=== PATIENT | male | born 1955 | race Caucasian/White ===

== ENCOUNTER → 2017-08-03 | Outpatient (CLI) | payer OTHER ==
[~2017-08-03] MED LIST: CRS10 PO; SYNUNK; [UNRECOGNIZED DRUG - OTHER] PO
[2017-08-03 12:36] LABS: BASO % 0.8 %; BASO ABS # 0.04 K/uL (0-0.2); EOS % 3.4 %; EOS ABS # 0.17 K/uL (0-0.5); HEMATOCRIT 42.5 % (42-52); HEMOGLOBIN 14.8 g/dL (14.0-18.0); IG# 0.01 K/uL (0.00-0.02); LYMPH % 27.9 %; LYMPH ABS # 1.39 K/uL (1.2-3.4); MEAN CELL VOLUME 86.4 fL (80-100); MEAN CORPUSCULAR HEMOGLOBIN 30.1 pg (25-34); MEAN CORPUSCULAR HGB CONC 34.8 g/dl (32-36); MEAN PLATELET VOLUME 8.9 fL (7.4-10.4); MONO ABS # 0.25 K/uL (0.11-0.59); NEUT % 62.7 %; NEUT ABS # 3.13 K/uL (1.4-6.5); PLATELET COUNT 239 K/uL (130-400); RED CELL DISTRIBUTION WIDTH CV 13.5 % (11.5-14.5); RED CELL DISTRIBUTION WIDTH SD 42.7 fL (36.4-46.3); WHITE BLOOD COUNT 4.99 K/uL (4.8-10.8)
[2017-08-03 13:16] LABS: ALBUMIN 4.3 gm/dl (3.4-5.0); ALT/SGPT 36 U/L (12-78); AST/SGOT 27 U/L (15-37); BLOOD UREA NITROGEN 14 mg/dl (7-18); CALCIUM 9.1 mg/dl (8.5-10.1); CARBON DIOXIDE 29 mmol/L (21-32); CHOLESTEROL 141 mg/dl (0-200); CREATININE 0.98 mg/dl (0.60-1.40); GLUCOSE 89 mg/dl (70-99); POTASSIUM 4.3 mmol/L (3.5-5.1); SODIUM 137 mmol/L (136-145); TESTOSTERONE,TOTAL 382.3 ng/dl
[2017-08-03 13:26] LABS: ALKALINE PHOSPHATASE 79 U/L (45-117); LDL CHOLESTEROL CALCULATED 31 mg/dl; TOTAL PROTEIN 7.7 gm/dl (6.4-8.2)
== END | disposition home or self-care (01) ==
LOC: C.LAB1850 11:18
PROVIDERS: ATTEND Internal Medicine Pulmonary Disease
DX: D35.2 Benign neoplasm of pituitary gland (principal); E03.9 Hypothyroidism, unspecified; E29.1 Testicular hypofunction; E78.5 Hyperlipidemia, unspecified; N52.9 Male erectile dysfunction, unspecified

== ENCOUNTER 2023-05-07 07:17 | Observation (INO) ==
--- NOTE | 2023-03-27 11:20 | PAT Medication Instructions ---
Medication Instructions Date of Service March 27, 2023 Home Medications Medication Instructions Recorded atorvastatin 20 mg tablet 20 mg PO QAM #90 tabs 08/14/22 levothyroxine 100 mcg tablet 100 mcg PO QAM #90 tabs 08/14/22 testosterone 2 pump topical DAILY #225 grams 08/14/22 sildenafil 100 mg tablet 100 mg PO DAILY PRN aspirin 81 mg tablet,delayed release 81 mg PO QAM atorvastatin 20 mg tablet 20 mg PO QAM levothyroxine 100 mcg tablet 100 mcg PO QAM testosterone 2 pump topical DAILY ASK your prescriber and surgeon aspirin 81 mg tablet,delayed release 81 mg PO QAM testosterone 2 pump topical DAILY DO NOT take the morning of surgery sildenafil 100 mg tablet 100 mg PO DAILY PRN Take morning of surgery With a small sip of water, OTHERWISE NOTHING TO EAT OR DRINK AFTER MIDNIGHT: atorvastatin 20 mg tablet 20 mg PO QAM levothyroxine 100 mcg tablet 100 mcg PO QAM Other Notes If you have any questions please call us at [phone] or [phone] or [phone] or [phone]
--- NOTE | 2023-04-05 10:17 | Anesthesiology Consultation ---
Date of Service April 05, 2023 Assessment & Plan (1) Encounter for pre-operative examination: Chart Review Chart Review: Acceptable Risk for Surgery and Patient seen in Pre Admission Testing Pt currently scheduled as 23 hours observation. If surgeon decides to change patient to Same Day Joint, patient would be acceptable risk for TKA, pending patient is motivated, has good support and surgeon's office completes [facility] preop requirements. Per PAT appt on 04/05/23, no recent illness/disease exposures, illness related symptoms, or recent illness/disease positive tests. Will leave to surgeon's discretion if preop Covid testing needed History Surgery Operation Date: 05/07/23 10:25 Proposed Procedures p Right Total Knee Arthroplasty(Right) - Marco Silveira, Height/Weight Height: 5 ft 10 in Weight: 118.4 kg Allergies Allergy/AdvReac Type Severity Reaction Status Date / Time No Known Drug Allergies Allergy Unknown Verified 03/27/23 10:32 Medications Home Medications Medication Instructions Recorded Confirmed Last Taken sildenafil 100 mg tablet 100 mg PO DAILY PRN sexual 11/18/18 03/27/23 12/25/20 activity #30 tabs aspirin 81 mg tablet,delayed 81 mg PO QAM 12/23/20 03/27/23 12/27/20 release atorvastatin 20 mg tablet 20 mg PO QAM #90 tabs 08/14/22 03/27/23 Unknown levothyroxine 100 mcg tablet 100 mcg PO QAM #90 tabs 08/14/22 03/27/23 Unknown testosterone 2 pump topical DAILY #225 grams 08/14/22 03/27/23 Unknown Past Medical History Medical History Right upper extremity numbness EMG scheduled 05/02/23 History of gout No recent issues Osteoarthritis Snoring No witnessed apnea- hx of sleep study- no HAYLEY Hyperlipidemia Hypothyroidism 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21 - on thyroid medication and testosterone- no known adrenal insufficiency per patient Exercise / Class Metabolic Activity II 4-5 Yardwork/Stairs/Walk up hill (one flight of stairs - no chest pain or SOB ) Past Family History Family History Mother Stroke Other Essential hypertension Stroke syndrome Thyroid disorder Past Surgical History Surgical History History of arthroscopy right knee History of tooth extraction History of appendectomy History of colonoscopy (~12/2020) Social History Smoking Status: Never smoker Do You Dip or Chew Tobacco: Yes (1-1.5 can/week- advised NPO after midnight) Hx Alcohol Use: Yes Alcohol type: beer alcohol intake frequency: a few times a month Hx Substance Use: No substance use type: does not use Review of Systems Patient denies chest pain, shortness of breath, dyspnea on exertion, reflux, cough, wheezing, palpitations. No hx of seizures, stroke, LA. No hx of blood clots or blood transfusions Physical Exam Vital Signs VITALS BP 118/77 P 66 TEMP 97.8 SP02 96% RESP 16 Constitutional no acute distress ENMT Mouth: no TMJ clicking Thyromental Distance: > or= 3.5 Finger Breadths (4.0) Mallampati Class: I Full dentures on top and bottom Neck neck extension not limited Respiratory normal respiratory effort; no respiratory distress Auscultation: lungs clear to auscultation bilaterally; no wheezes Cardiovascular Rate/Rhythm: regular rate and regular rhythm Heart Sounds: no murmur Vessels: no carotid bruit Musculoskeletal Spine: no pain with cervical ROM Extremities: extremities normal to inspection Psychiatric Orientation: alert Lab Results Anesthesia Preop Results Results Anesthesia Widget: WBC 5.65 K/ul (4.8-10.8) 04/05/23 Hgb 14.0 g/dl (14.0-18.0) 04/05/23 Hct 40.5 % (42.0-52.0) L 04/05/23 Plt 234 K/uL (130-400) 04/05/23 Na 138 mmol/L (136-145) 04/05/23 K 4.5 mmol/L (3.5-5.1) 04/05/23 Cl 106 mmol/L (98-107) 04/05/23 CO2 29 mmol/L (21-32) 04/05/23 BUN 11 mg/dl (6-23) 04/05/23 Creat 1.07 mg/dl (0.6-1.4) 04/05/23 Glucose Level 92 mg/dl (70-99(Fasting)) 04/05/23 PT 11.1 Seconds (9.0-12.0) 04/05/23 PTT 30 Seconds (21-31) 04/05/23 INR 1.0 (0.9-1.1) 04/05/23 Blood Type O Positive 04/05/23 Antibody Screen NEGATIVE 04/05/23 Testing Electrocardiogram Date: 04/05/23 Findings: + SB @ (55bpm) Otherwise normal EKG per cardio Chest X-Ray Date: 04/05/23 Findings: + NAD Other Testing Brain MRI 06/10/19= Limited white matter changes either age-related change or mild chronic small vessel ischemic change. No acute intracranial abnormality. Postsurgical changes of the sella and sphenoid sinuses as on prior exam.
--- NOTE | 2023-05-03 12:41 | History & Physical Report ---
Date of Service May 03, 2023 Assessment & Plan (1) Osteoarthritis of right knee: We will proceed with a right total knee arthroplasty. Postoperatively he will be started on aspirin for DVT prophylaxis and kept overnight in the hospital for postop medical management. He plans to go to [facility] physical therapy before discharge. History of Present Illness Chief Complaint: Osteoarthritis of the right knee. Primary Care Provider: Jarvis Klein MD Stuart is a pleasant 67-year-old male who has been dealing with chronic increasing right knee pain. It has been going on for years. It has waxed and waned over the years. There are times where he has to stop what he is doing to put ice on his knee because it is very painful. All of his pain is located laterally. X-rays and clinical examination been diagnostic for advanced osteoarthritis of the right knee. After failing conservative treatment, he has elected proceed with a right total knee arthroplasty. . Allergies Allergy/AdvReac Type Severity Reaction Status Date / Time No Known Drug Allergies Allergy Unknown Verified 03/27/23 10:32 Home Medications Medication Instructions Recorded Confirmed Type sildenafil 100 mg tablet 100 mg PO DAILY PRN sexual 11/18/18 03/27/23 History activity #30 tabs aspirin 81 mg tablet,delayed 81 mg PO QAM 12/23/20 03/27/23 History release atorvastatin 20 mg tablet 20 mg PO QAM #90 tabs 08/14/22 03/27/23 Rx levothyroxine 100 mcg tablet 100 mcg PO QAM #90 tabs 08/14/22 03/27/23 Rx testosterone 2 pump topical DAILY #225 grams 08/14/22 03/27/23 Rx Past Med/Surg History Medical History Right upper extremity numbness EMG scheduled 05/02/23 History of gout No recent issues Osteoarthritis Snoring No witnessed apnea- hx of sleep study- no HAYLEY Hyperlipidemia Hypothyroidism 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21 - on thyroid medication and testosterone- no known adrenal insufficiency per patient Surgical History History of arthroscopy right knee History of tooth extraction History of appendectomy History of colonoscopy (~12/2020) Family History Mother Stroke Other Essential hypertension Stroke syndrome Thyroid disorder Social History Smoking Status: Never smoker Tobacco Type: Smokeless Tobacco (Dip or Chew) Second Hand Exposure: No; Do You Dip or Chew Tobacco: Yes (1-1.5 can/week- advised NPO after midnight); Tobacco Cessation Education Requested by Patient: No Hx Alcohol Use: Yes Alcohol type: beer Hx Substance Use: No Preferred Language: Belarusian Communication Ability: Effective Furniture Finisher Required: No Beliefs That Will Affect Care: None marital status: Current Living Situation: Spouse current occupational status: employed Feels Safe at Home: Yes Safety Concerns: Feels Safe At This Time Assistive Devices: Denture - Upper and Denture - Lower Review of Systems All systems reviewed & are unremarkable except as noted in HPI & below. Physical Exam On physical examination the right knee, he has decreased range of motion. He has pain over the distal medial and lateral femoral condyles.. Constitutional WD/WN, vitals as above Eyes PERRL, conjunctivae normal, anicteric sclerae ENMT external ear and nose normal, oropharynx normal Neck trachea midline, no thyromegaly Respiratory normal respiratory effort Cardiovascular RRR, no murmur, no edema Gastrointestinal (Abdomen) normal bowel sounds, soft, nontender, no hepatosplenomegaly Psychiatric A+Ox3, euthymic affect Results & Data Results & Data Laboratory Results . Diagnostic Findings X-rays of the right knee show advanced osteoarthritis with joint space narrowing, osteophyte formation, and [id number] articulation. PG Care Time/CCT Total # of Minutes Spent Total Time Spent with Patient: Total time spent is greater than 50% in coordination of care (as documented) at patient's floor/unit and/or counseling patient: Coding Level of Care Code None Diagnoses Osteoarthritis of right knee M17.11
[~2023-05-07 07:17] MED LIST changes: +ACETAMINOPHEN 500 MG TAB PO SCH; +BUPIVACAINE 0.5 % 5 MG/1 ML PF 10ML VIAL ONE; -CRS10 PO; +FAMOTIDINE 20 MG TAB PO SCH; +GABAPENTIN 300 MG CAP PO SCH; +LR 500ML BOLUS, THEN 15ML/HR IV SCH; +LR 60ML/HR IV SCH; +ROPIV 0.5% 246mg, Ketorolac 30mg, EPINEPHrine 0.5mg in NSS INFIL SCH; +ROPIVACAINE 0.5% 5 MG/ML 30 ML VIAL ONE; -SYNUNK; +TRANEXAMIC ACID 1,000 MG **IV Intra-op IV SCH; +TRANEXAMIC ACID 1,000 MG **IV Pre-op IV SCH; -[UNRECOGNIZED DRUG - OTHER] PO; +ceFAZolin 2000MG 2,000 MG/15 ML SYR IV SCH; +dexAMETHasone**PF** 10 MG/ML VIAL IV SCH
[2023-05-07] MEDS ORDERED: MIDAZOLAM HCL 1 MG/ML 2ML VIAL ONE (08:41)
[2023-05-07] MEDS ORDERED: fentaNYL citrate PF 100 MCG/2 ML VIAL ONE (08:41)
[2023-05-07] MEDS ORDERED: ORTHO JOINT ANESTHETIC ONE (08:56)
[2023-05-07] MEDS ORDERED: ATROPINE SULFATE 0.1 MG/ML 10ML SYR IV PRN (09:00)
[2023-05-07] MEDS ORDERED: ePHEDrine sulfate 50 MG/ML AMP IV PRN (09:00)
[2023-05-07] MEDS ORDERED: ONDANSETRON INJ 2 MG/ML 2 ML VIAL IV PRN ×2 (09:00→13:20)
[2023-05-07] MEDS ORDERED: fentaNYL citrate PF 100 MCG/2 ML VIAL IV PRN (09:00)
--- NOTE | 2023-05-07 09:26 | History & Physical Bridge Note ---
Date of Service May 07, 2023 History & Physical Bridge Note I have examined the patient, reviewed the History & Physical and in the interval since the performance of the History & Physical I have noted the following changes of clinical significance: no changes noted
[2023-05-07] MEDS ORDERED: DexMEDEtomidine HCL IV 100 MCG/ML VIAL IV ONE (09:27)
[2023-05-07] MEDS ORDERED: ePHEDrine sulfate 50 MG/5 ML SYR ONE (09:46)
[2023-05-07] MEDS ORDERED: ONDANSETRON INJ 2 MG/ML 2 ML VIAL ONE (09:54)
[2023-05-07] MEDS ORDERED: PROPOFOL IV EMULSION 10 MG/ML 20 ML VIAL IV ONE (09:54)
[2023-05-07] MEDS ORDERED: ARISTA ABSORBABLE HEMOSTAT 3GM TOP ONE (10:04)
--- NOTE | 2023-05-07 10:36 | Operative Report ---
PG Post Operative Report Pre & Post Diagnosis Operation Date: 05/07/23 09:15 Pre-Op Diagnosis: Degenerative Joint Disease Right Knee Post-Op Diagnosis: Degenerative Joint Disease Right Knee I identified the patient and participated in the time-out.: Yes Procedure Operation Date: 05/07/23 09:15 Actual Procedures p Right Total Knee Arthroplasty, Cemented(Right) - Marco Silveira DO Surgeon Marco Silveira DO [employer] Marco Purcell PA-C Estimated Blood Loss 30 Findings Consistent with Post-Op Diagnosis Specimens Right femoral tibial bone Description of Procedure Implants used: I used a Hortencia Persona total knee arthroplasty system with a size 11 PS femur, F tibia, 34 oval patella, and a size 10 CPS polyethylene bearing. All components were cemented in place with Biomet cement. Stuart arrived [facility] for the above procedure. He was seen in the preoperative holding area and the operative extremity was identified and signed. He was given a preoperative antibiotic, TXA, a spinal anesthetic and an adductor nerve block. He was taken back to the operating room and laid on the table in supine position. He was given basic sedation. The operative knee was then prepped and draped in sterile fashion. A timeout was done, and the patient and the operative extremity was properly identified. A midline incision was made directly over the patella. Dissection was taken down to the extensor mechanism. A medial parapatellar arthrotomy was used. The medial retinaculum was released and the fat pad was mostly excised. The knee was flexed and the ACL, PCL, and meniscus were removed. A drill was sent down the center of the femoral canal followed by an intramedullary cathryn. Off that cathryn a distal femoral cutting block was placed. 9 mm was resected off the distal femur at 5 of valgus. A posterior referencing AP sizing guide was then placed on the distal femur. The femur measured to be a size 11. 2 drill holes were placed in 3 of external rotation. A 4-in-1 cutting block was then impacted into place. Anterior, posterior, and chamfer cuts were then made. The proximal tibia was then exposed. An external tibial alignment guide was placed. A tibial cut guide was then anchored in place and the proximal tibia was then resected. The posterior aspect of the knee was then opened up and any additional meniscus fragments and osteophytes were removed. The tibia measured to be a size F. The tibial plate was then placed in the appropriate rotation and the tibia was drilled and punched. Trial components were then placed. I used a size 10 CPS polyethylene insert. The knee was brought through a full range of motion and felt to be stable. The peg holes for the femoral component were then drilled. The patella was then everted and 9 mm was resected off the posterior aspect of the patella. The patella measured to be a size 34 oval. 3 peg holes were then drilled. A trial patella was placed. The knee was once again brought through a full range of motion and felt to be stable. Trial components were then removed. The surrounding soft tissues were injected with 100 cc of an orthopedic pain control cocktail. All components were then cemented into place with Biomet cement. The final polyethylene insert was then snapped into place. Once cement was dry the tourniquet was deflated. Hemostasis was obtained. A dilute betadyne lavage was then done for 3 minutes. The joint was then irrigated with normal saline solution. The medial parapatellar arthrotomy was then closed with #1 Vicryl suture. The skin was closed with 2-0 Vicryl, 3-0V lock suture, and tarah. A soft compressive dressing was placed. He was then transferred to a hospital bed and taken to the postanesthesia care unit in stable condition. He tolerated the procedure well. Marco Purcell PA-C, was present for the entire procedure. He was critical for patient positioning, prepping, draping, retraction exposure, wound closure and application of sterile dressing. I attest to the content of the Intraoperative Record and any orders documented therein. Any exceptions are noted below.
--- NOTE | 2023-05-07 11:50 | XRay Report ---
TWO VIEWS RIGHT KNEE CLINICAL HISTORY: Postoperative examination. FINDINGS: AP and crosstable lateral portable views of the right knee are obtained. A right knee arthr oplasty is in near anatomic alignment. There has been undersurface remodeling of the patella. No acut e fracture is seen. There are expected postoperative changes around the knee including skin clips, so ft tissue edema, and subcutaneous gas. IMPRESSION: Expected postoperative changes status post right knee arthroplasty. No acute fracture is seen. ACT 112: Negative or not required by law. Electronically signed by: Priyank Poe M.D. 05/07/2023 11:49 AM
--- NOTE | 2023-05-07 11:56 | Anesthesiology Progress Note ---
Date of Service May 07, 2023 Anesthesia Post Procedure Vital Signs Vital Signs: Temp Pulse Pulse Resp BP Pulse Ox O2 Del Method 05/07/23 11:45 56 L 14 105/60 92 Room Air 05/07/23 11:35 52 L 17 106/58 L 92 Room Air 05/07/23 11:25 97.5 F L 59 L 22 101/59 L 92 Room Air 05/07/23 11:15 52 L 14 106/56 L 94 Oxymask 05/07/23 11:05 59 L 13 106/59 L 95 Oxymask 05/07/23 10:57 97.2 F L 61 14 90/40 L 92 Oxymask 05/07/23 07:47 98.2 F 56 L 16 140/80 97 Room Air O2 Flow Rate 05/07/23 11:45 05/07/23 11:35 05/07/23 11:25 05/07/23 11:15 2 05/07/23 11:05 7 05/07/23 10:57 7 05/07/23 07:47 Pain Intensity Right Knee: Pain Intensity: 3 Transfer of Care Handoff Completed per policy Notes Mental Status: alert / awake / arousable and participated in evaluation Patient Amnestic to Procedure: Yes Nausea / Vomiting: adequately controlled Pain: adequately controlled Airway Patency, RR, SpO2: stable & adequate BP & HR: stable & adequate Hydration State: stable & adequate Neuraxial Anesthesia: was administered and sensory block is resolving Anesthetic Complications: no major complications apparent and Pt Satisfied with anesthetic care
[2023-05-07] MEDS ORDERED: NALOXONE HCL 0.4 MG/1 ML VIAL/CARP IV PRN (13:20)
[2023-05-07] MEDS ORDERED: NON-FORMULARY MEDICATION (Sildenafil 100 mg tablet) PO PRN (13:20)
[2023-05-07] MEDS ORDERED: oxyCODONE HCL IR 5 MG TAB (IMMEDIATE RELEASE) PO PRN (13:20)
[2023-05-07] MEDS ORDERED: MAGNESIUM HYDROXIDE SUSP 30 ML UDC PO PRN (13:20)
[2023-05-07] MEDS ORDERED: METOCLOPRAMIDE HCL INJ 5 MG/ML 2 ML VIAL IV PRN (13:20)
[2023-05-07] MEDS ORDERED: HYDROmorphone INJ 0.5 MG/0.5 ML SYR IV PRN (13:20)
[2023-05-07] MEDS ORDERED: bisacodyL 10 MG SUPP PR PRN (13:20)
[2023-05-07] MEDS: ACETAMINOPHEN 500 MG TAB PO SCH ×2 (13:51→21:22)
[2023-05-07] MEDS: KETOROLAC TROMETHAMINE 15 MG/ML VIAL IV SCH ×2 (13:51→19:58)
[2023-05-07] MEDS ORDERED: SODIUM CHLORIDE 0.9% 1,000 ML IV SCH (14:00)
[2023-05-07] MEDS: ceFAZolin 2000MG 2,000 MG/15 ML SYR IV SCH (16:33)
[2023-05-07] MEDS: DOCUSATE SODIUM 100 MG CAP PO SCH (19:59)
[2023-05-07] MEDS: ASPIRIN 81 MG ECTAB PO SCH (19:59)
[2023-05-07] MEDS ORDERED: SENNA 8.6 MG TAB PO SCH (21:00)
[2023-05-08] MEDS: ceFAZolin 2000MG 2,000 MG/15 ML SYR IV SCH (00:20)
[2023-05-08] MEDS: KETOROLAC TROMETHAMINE 15 MG/ML VIAL IV SCH ×2 (00:20→07:26)
[2023-05-08] MEDS: ACETAMINOPHEN 500 MG TAB PO SCH (04:49)
[2023-05-08] MEDS ORDERED: LEVOTHYROXINE SODIUM 100 MCG TABLET PO SCH (06:30)
[2023-05-08] MEDS: ASPIRIN 81 MG ECTAB PO SCH (07:26)
[2023-05-08] MEDS: DOCUSATE SODIUM 100 MG CAP PO SCH (07:27)
[2023-05-08] MEDS ORDERED: dexAMETHasone 4 MG TAB PO SCH (08:00)
[2023-05-08] MEDS ORDERED: MULTIVITAMIN TAB PO SCH (09:00)
[2023-05-08] MEDS ORDERED: ATORVASTATIN 20 MG TAB PO SCH (09:00)
--- NOTE | 2023-05-08 11:57 | Orthopedic Progress Note ---
Date of Service May 08, 2023 Assessment & Plan (1) Status post right knee replacement: Overall he is doing quite well today with good pain control to the right knee. He will work with physical therapy later this morning to work on ambulation and range of motion exercises. He is on aspirin for DVT prophylaxis. He can be discharged home later this morning pending physical therapy evaluation. He will follow-up with orthopedics in 2 weeks for postoperative care. Subjective . Stuart was seen and evaluated this morning resting comfortably in no apparent distress. He notes that his pain to the right knee is well-controlled. He has been up and ambulating with no significant issues. He has yet to be seen by physical therapy. He denies any other concerns today. Review of Systems All systems reviewed & are unremarkable except as noted in HPI & below. Physical Exam . On physical examination of the right knee, dressings are clean, dry, intact. His right leg is out in full extension. He has active plantarflexion dorsiflexion to the right ankle. +2 DP and PT pulses. Less than 2-second capillary refill. Normal sensation. Neurovascular intact. Results & Data Results & Data Laboratory Results . Diagnostic Findings . Postoperative x-rays of the right knee show prosthesis to be in anatomical alignment with no signs of fracture complication or loosening. PG Care Time/CCT Total # of Minutes Spent Total Time Spent with Patient: Total time spent is greater than 50% in coordination of care (as documented) at patient's floor/unit and/or counseling patient: Coding Level of Care Code 88620 Post Operative Follow-Up Diagnoses Status post right knee replacement Z96.651
--- NOTE | 2023-05-08 11:59 | Discharge Summary ---
Date of Service May 08, 2023 Admission HPI (Per Admitting) Stuart is a pleasant 67-year-old male who has been dealing with chronic increasing right knee pain. It has been going on for years. It has waxed and waned over the years. There are times where he has to stop what he is doing to put ice on his knee because it is very painful. All of his pain is located laterally. X-rays and clinical examination been diagnostic for advanced osteoarthritis of the right knee. After failing conservative treatment, he has elected proceed with a right total knee arthroplasty. . Admission Exam (Per Admitting) On physical examination the right knee, he has decreased range of motion. He has pain over the distal medial and lateral femoral condyles.. Principal Diagnosis Same as "Discharge Diagnosis" noted below under Discharge Instructions. Discharge Exam . On physical examination of the right knee, dressings are clean, dry, intact. His right leg is out in full extension. He has active plantarflexion dorsiflexion to the right ankle. +2 DP and PT pulses. Less than 2-second capillary refill. Normal sensation. Neurovascular intact. Discharge Data Procedures Performed Operation Date: 05/07/23 09:15 Actual Procedures p Right Total Knee Arthroplasty, Cemented(Right) - Marco Silveira DO Ordered Studies 05/07/23 05:00 US - OR guided needle placemen Routine Hospital Course (1) Status post right knee replacement: On May 07, 2023. Arrived at [facility] and underwent a right total knee arthroplasty performed by Dr. Silveira with no complications. He had a spinal anesthetic. Postoperatively, he was started on aspirin for DVT prophylaxis and transferred to the general orthopedic floor in stable condition. His hospital course was uneventful. On postoperative day #1, his vital signs were stable and his pain was well-controlled. He participated well with physical therapy working on ambulation and range of motion exercises. He was then discharged home in stable condition. He will follow-up with orthopedics in 2 weeks for postoperative care. PG Care Time/CCT Total # of Minutes Spent Total Time Spent with Patient: Total time spent is greater than 50% in coordination of care (as documented) at patient's floor/unit and/or counseling patient: Discharge Plan Discharge Items Patient Disposition: Home - Home Health Services Reason For Visit: Degenerative Joint Disease Right Knee Discharge Diagnosis: Same Activity: Per Instructions section Non-emergency contact: Surgeon Call non-emergency contact if: your temperature is above 101.5, your wound has increased redness and your wound has increased drainage Follow-up/Referrals: Jarvis Klein MD [Primary Care Provider] - Diet: Regular Addtl Attending Provider Instructions: Activity and Therapy Recommendations: * If you are using [facility] then therapy will be provided at your home until they feel you have accomplished all of your goals. * If you are using [facility] then Physical Therapy will be provided until they feel you are ready to start Outpatient Physical Therapy. * If you are not using home therapy then Outpatient Physical Therapy should start about 3-5 days from your day of surgery. Therapy will last about 6-10 weeks * It is important not to put a pillow under your knee when you are relaxing or sleeping. It is just as important to make sure you are getting your knee perfectly straight as it is to regain your knee bend. * You were shown a series of exercises in the hospital. Do these exercises three times each day including the exercises you were shown in physical therapy. * Get up and walk several times each day. For the first four weeks, try not to stand or walk for more than one hour at a time. If you do stand or walk for more than one hour, you will not hurt anything, but your leg will likely swell. * As you feel comfortable, you may change from the walker or crutches to a cane and then to independent walking. Medications: * Narcotic You will likely be sent home from the hospital with a prescription for the narcotic pain medication that worked best throughout your stay. * Cefadroxil -take the antibiotic twice a day for 10 days to help prevent infection. * Aspirin Most patients will be required to take Aspirin 81mg twice a day for 6 weeks after surgery. This is obtained [id number] and a prescription is not necessary. * Other medications may be prescribed for specific circumstances. If you have any questions, please call the office at . * Resume previous home medications unless otherwise instructed TEDs/Elastic Stockings: The white elastic stockings help limit swelling and prevent blood clots from forming in your legs.~ The more you wear them, the more they work. Wear them for six weeks. Dressing Care: The dressing can be changed after physical therapy on postop day #1. Daily dry dressing changes for a few days, especially if the incision is still draining some. If the incision is not draining then you may leave the tarah open to air. If there is a little bit of drainage or if the tarah are getting stuck on your clothing then cover the incision with a dry dressing. The tarah will be removed at your 2 week follow-up appointment. Showering: You may shower 5 days from the day of surgery as long as the incision is no longer draining. You may shower with the tarah exposed. Let soapy water run over the tarah and pat them dry. Do not scrub or soak the incision. Things To Watch For: * Drainage from the incision site that occurs more than one week after your surgery. * Increased redness at the incision site. * Fever above 102 degrees Fahrenheit. * Unusual chest pain or shortness of breath. * Call [facility] at with any of the above problems Follow-Up Visit: Follow-up with Dr. Silveira's PA (Mraco Purcell) 2-3 weeks after your day of surgery. He will remove your tarah and answer any questions. If you have any additional questions or concerns, Dr Silveira is usually in the office at the same time and will be available An appointment was probably scheduled when you signed-up for surgery in the office. If you have any questions call Office Instructions: More detailed instructions as well as Frequently Asked Questions were provided in a folder by our office when you signed-up for surgery. Please review these instructions when you get home. If you have any further questions or concerns, please feel free to call the office at [phone] Pending Studies at Discharge: No Stand-Alone Forms: [facility], Smoking Cessation Medications and DC Order Prescriptions: New aspirin 81 mg Tablet,Delayed Release (Dr/Ec) 81 mg PO BID 42 Days Qty: 0 0RF oxycodone 5 mg Tablet 5 mg PO Q6 PRN (Reason: pain) Qty: 30 0RF cefadroxil 500 mg capsule 500 mg PO BID 10 Days Qty: 20 0RF Continued sildenafil 100 mg tablet 100 mg PO DAILY PRN (Reason: sexual activity) Qty: 30 atorvastatin 20 mg tablet 20 mg PO QAM Qty: 90 3RF Rx Instructions: TAKE 1 TABLET BY MOUTH ONCE DAILY levothyroxine 100 mcg tablet 100 mcg PO QAM Qty: 90 3RF Rx Instructions: TAKE 1 TABLET BY MOUTH ONCE DAILY testosterone 20.25 mg/1.25 gram (1.62 %) gel in metered-dose pump 2 pump topical DAILY Qty: 225 3RF Rx Instructions: Apply 40.5mg/2 PUMPS to front and inner area of EACH thigh; avoid water for >=2 hrs Discontinued aspirin 81 mg Tablet,Delayed Release (Dr/Ec) 81 mg PO QAM Krames/Other Patient Handouts: Understanding Knee Replacement, Knee Replace 1st Month, Knee Replace Control Swelling Admission Data Admit Date/Time: 05/07/23 10:58 Attending Provider: Marco Silveira Admit Provider: Marco Silveira Primary Care Provider: Jarvis Klein Other Interventions: Discharge Summary Assessment (RN) Last Done: 05/08/23 08:49
== END 2023-05-08 10:13 | disposition home health service (06) ==
LOC: ASU 07:17 → 3E 07:17